=== PATIENT | female | born 1945 | race Hispanic/Latino ===

== ENCOUNTER 2020-02-13 16:17 | Inpatient (IN) | payer SELFPAY ==
[2020-02-13] MEDS ORDERED: ONDANSETRON 4 MG/2 ML VIAL ONE ×2 (18:43→21:27)
[2020-02-13] MEDS ORDERED: NA CHLORIDE 0.9% 1,000 ML ONE (18:43)
[2020-02-13 19:12] LABS: Basophils % 0.2 % (0-1.3); Hematocrit 40.4 % (36.0-45.0); Lymphocytes % 14.5 % (15.3-44.8); MPV 10.3 fL (7.6-11.3); RBC Red Blood Cell Count 4.87 M/uL (3.86-4.86)
[2020-02-13] MEDS ORDERED: Levofloxacin500mg IV 500 MG/100 ML BAG IV ONE (19:16)
[2020-02-13] MEDS ORDERED: ACETAMINOPHEN 325 MG TABLET ONE (19:29)
[2020-02-13 19:39] LABS: Albumin 2.9 g/dL (3.4-5.0); Bilirubin Direct 0.2 mg/dL (0-0.2); Bilirubin Total 0.4 mg/dL (0.2-1.0); Protein, Total 7.5 g/dL (6.4-8.2); Troponin (Emerg Dept Use Only) 0.02 ng/mL (0.0-0.045)
[2020-02-13 20:00] LABS: Magnesium 1.5 mg/dL (1.8-2.4)
--- NOTE | 2020-02-13 20:03 | RAD REPORT ---
EXAM DESCRIPTION: RAD - Chest Single View - 02/13/2020 7:44 pm CLINICAL HISTORY: COUGH COMPARISON: None TECHNIQUE: AP portable chest image was obtained 02/13/2020 7:44 pm . FINDINGS: Hazy opacification is present in the right upper lobe suspicious for early pneumonia. No f ocal abnormality in the left lung field. Small right pleural effusion is also evident. Heart and vasc ulature are normal. No pneumothorax. No acute bony abnormality seen. No acute aortic findings suspect ed. IMPRESSION: Small right pleural effusion is present along with suspicious right upper lobe pneumonia .
--- NOTE | 2020-02-13 20:16 | ER ---
Nurse's Notes [facility] Name: Bee Roque Age: 74 yrs Sex: Female : 1945 Arrival Date: 02/13/2020 Time: 16:19 Bed 25 Private MD: Diagnosis: Nausea;Diarrhea, unspecified;Hypokalemia;Hypomagnesemia;Type 2 diabetes mellitus;Pneumonia due to other specified bacteria-right upper lobe;Pleural effusion in conditions classified elsewhere Presentation: 02/12 16:23 Chief complaint: Daughter in law stated that she has been seeing her PCP for a stomach sv infection. Sent here by the [facility]. They prescribed her meds but has been vomiting and she started to have fever. Reports intermittent abd pain. Coronavirus screen: Proceed with normal triage. Patient denies a cough. Patient denies shortness of breath or difficulty breathing. Patient reports a measured and/or subjective temperature greater than 100.4F. Patient denies travel on a cruise ship or to a country the [facility] currently lists as an affected area. Patient denies contact with known and/or suspected case of COVID-19. Ebola Screen: No symptoms or risks identified at this time. Risk Assessment: Do you want to hurt yourself or someone else? Patient reports no desire to harm self or others. Onset of symptoms was February 13, 2020. 16:23 Method Of Arrival: Wheelchair sv 16:23 Acuity: BC 2 sv 16:31 Initial Sepsis Screen: Does the patient meet any 2 criteria? HR > 90 bpm. No. Patient's sv initial sepsis screen is negative. Does the patient have a suspected source of infection? No. Patient's initial sepsis screen is negative. 17:00 Chief complaint: Daughter in law stated that she got dizzy while she was helping her in sv the bathroom. Reports she is having diarrhea now. Triage Assessment: 16:23 General: Appears in no apparent distress. uncomfortable, Behavior is calm, cooperative, sv appropriate for age. Pain: Complains of pain in abdomen. Neuro: Level of Consciousness is awake, alert, obeys commands, Oriented to person, place, time, situation. Respiratory: Respiratory effort is even, unlabored. GI: Reports vomiting. Historical: - Allergies: 16:28 No Known Allergies; sv - Home Meds: 16:28 famotidine 20 mg Oral tab 1 tab 2 times per day [Active]; glyburide 5 mg Oral tab 1 tab sv 2 times per day [Active]; enalapril maleate 10 mg Oral tab 1 tab once daily [Active]; metoclopramide HCl 10 mg Oral tab three times a day [Active]; - PMHx: 16:28 Diabetes - NIDDM; Hypertension; sv - Immunization history:: Adult Immunizations up to date. - Family history:: not pertinent. - Social history:: Smoking status: unknown. Screenin:00 Abuse screen: Denies threats or abuse. Denies injuries from another. Nutritional bp screening: No deficits noted. Tuberculosis screening: No symptoms or risk factors identified. Fall Risk None identified. Assessment: 16:30 General: SEE TRIAGE NOTE. bp 18:00 Reassessment: PROVIDER ASSIGNED, ORDERS PENDING. bp 19:50 General: Appears uncomfortable, Behavior is appropriate for age. Neuro: Level of ea Consciousness is awake, alert, obeys commands. 19:50 Cardiovascular: Patient's skin is warm and dry. Respiratory: Airway is patent ea Respiratory effort is even, unlabored, Respiratory pattern is regular, symmetrical. GI: Reports diarrhea. GI: Bowel sounds present X 4 quads. Derm: Skin is intact, Skin is pale, Skin temperature is warm. 20:40 Reassessment: Patient and/or family updated on plan of care and expected duration. Pain ea level reassessed. Patient is alert, oriented x 3, equal unlabored respirations, skin warm/dry/pink. 21:00 Reassessment: Patient and/or family updated on plan of care and expected duration. Pain ea level reassessed. Patient is alert, oriented x 3, equal unlabored respirations, skin warm/dry/pink. 22:30 Reassessment: Patient and/or family updated on plan of care and expected duration. Pain ea level reassessed. Pt resting with eyes closed, respirations even and unlabored, chest expansions even and symmetrical. Vital Signs: 16:28 BP 111 / 83; Pulse 109; Resp 16; Temp 99.3(TE); Pulse Ox 98% ; sv 18:00 BP 137 / 73; Pulse 99; Resp 16; Pulse Ox 94% ; bp 19:00 BP 112 / 66; Pulse 92; Resp 18; Pulse Ox 95% ; ea 20:30 BP 117 / 65; Pulse 83; Resp 16; Pulse Ox 96% on R/A; ea 21:30 BP 108 / 50; Pulse 80; Resp 18; Pulse Ox 97% ; ea 02/13 09:03 BP 109 / 41; Pulse 75; Resp 16; Temp 98.6(O); Pulse Ox 96% on R/A; mh5 ED Course: 02/12 16:19 Patient arrived in ED. mr 16:23 Arm band placed on. sv 16:26 Triage completed. sv 17:11 Uche Meza MD is Attending Physician. bri 17:13 Jose Melendez, PRIMITIVO is Primary Nurse. bp 18:00 Patient has correct armband on for positive identification. Bed in low position. Call bp light in reach. Side rails up X2. Adult w/ patient. 18:55 Inserted saline lock: 22 gauge in right forearm, using aseptic technique. Blood bp collected. 19:44 XRAY Chest (1 view) In Process Unspecified. EDMS 20:13 Ned Hernandez is Hospitalizing Provider. bri 20:40 No provider procedures requiring assistance completed. Patient admitted, IV remains in ea place. 02/13 09:07 Pillow given. game technician on. Pulse ox on. NIBP on. mh5 09:07 Placed in gown. mh5 Administered Medications: 02/12 18:55 Drug: NS 0.9% 1000 ml Route: IV; Rate: 1 bolus; Site: right forearm; bp 20:30 Follow up: Response: No adverse reaction; IV Status: Completed infusion; IV Intake: ea 1000ml 19:02 Drug: Zofran (Ondansetron) 4 mg Route: IVP; Site: right forearm; bp 19:50 Follow up: Response: No adverse reaction ea 19:14 Drug: levofloxacin 500 mg Volume: 100 ml; Route: IVPB; Infused Over: 60 mins; Site: ea right forearm; 20:20 Follow up: Response: No adverse reaction; IV Status: Completed infusion ea 19:41 Drug: Tylenol 650 mg Route: PO; ca1 20:20 Follow up: Response: No adverse reaction ea 20:30 Drug: Magnesium Sulfate 1 grams Route: IVPB; Infused Over: 1 hrs; Site: right ea antecubital; 21:49 Follow up: Response: No adverse reaction; IV Status: Completed infusion ea 20:30 Drug: Potassium Chloride 20 mEq Route: IV; Rate: per protocol; Site: right antecubital; ea 23:00 Follow up: Response: No adverse reaction; IV Status: Completed infusion ea 20:30 Drug: NS 0.9% with KCl 20 mEq/L 1000 ml Route: IV; Rate: 100 ml/hr; Site: right ea antecubital; 02/13 00:13 Follow up: IV Status: Infusion continued upon admission ea 02/12 21:28 Drug: morphine 4 mg Route: IVP; Site: right forearm; ea 22:30 Follow up: Response: No adverse reaction; Pain is decreased ea 21:28 Drug: Zofran (Ondansetron) 4 mg Route: IVP; Site: right forearm; ea 22:30 Follow up: Response: No adverse reaction ea Intake: 20:30 IV: 1000ml; Total: 1000ml. ea Outcome: 20:15 Decision to Hospitalize by Provider. bri 20:41 Instructed on the need for admit, Demonstrated understanding of instructions. ea 02/13 00:14 Admitted to ER Hold. Please see [facility] for further documentation. ea Condition: stable 15:48 Patient left the ED. dm5 Signatures: Dispatcher [employer] EDMS Zulma Galvez RN RN dmXochitl Keen RN RN sv Anderson, Corey, MD MD cha Rivera, Kaelyn mr Mccann, Bee Keyanna Guan RN Jose Lynn ea, RN Kathya Gallegos RN RN ca1 Corrections: (The following items were deleted from the chart) 02/12 16:30 16:23 Acuity: BC 3 sv sv 16:31 16:23 Chief complaint: Daughter in law stated that she has been seeing her PCP for a sv stomach infection. Sent here by the [facility]. They prescribed her meds but has been vomiting and she started to have fever. Reports intermittent abd pain. sv
--- NOTE | 2020-02-13 20:17 | EDPHYS ---
Physician Documentation [facility] Name: Bee Roque Age: 74 yrs Sex: Female : 1945 Arrival Date: 02/13/2020 Time: 16:19 Bed 25 Private MD: ED Physician Uche Meza HPI: 02/12 18:23 This 74 yrs old Female presents to ER via Wheelchair with complaints of Fever, bri Vomiting. 18:23 The patient reports fever, that was measured at 100 degrees Fahrenheit. Onset: The bri symptoms/episode began/occurred 4 day(s) ago. Modifying factors: there are no obvious modifying factors. Associated signs and symptoms: Pertinent positives: diarrhea, nausea, vomiting. Severity of symptoms: At their worst the symptoms were moderate in the emergency department the symptoms are unchanged. The patient has not experienced similar symptoms in the past. Historical: - Allergies: 16:28 No Known Allergies; sv - Home Meds: 16:28 famotidine 20 mg Oral tab 1 tab 2 times per day [Active]; glyburide 5 mg Oral tab 1 tab sv 2 times per day [Active]; enalapril maleate 10 mg Oral tab 1 tab once daily [Active]; metoclopramide HCl 10 mg Oral tab three times a day [Active]; - PMHx: 16:28 Diabetes - NIDDM; Hypertension; sv - Immunization history:: Adult Immunizations up to date. - Family history:: not pertinent. - Social history:: Smoking status: unknown. ROS: 18:23 Eyes: Negative for injury, pain, redness, and discharge, ENT: Negative for injury, bri pain, and discharge, Neck: Negative for injury, pain, and swelling, Cardiovascular: Negative for chest pain, palpitations, and edema, Respiratory: Negative for shortness of breath, cough, wheezing, and pleuritic chest pain, Back: Negative for injury and pain, : Negative for injury, bleeding, discharge, and swelling, MS/Extremity: Negative for injury and deformity, Skin: Negative for injury, rash, and discoloration, Neuro: Negative for headache, weakness, numbness, tingling, and seizure, Psych: Negative for depression, anxiety, suicide ideation, homicidal ideation, and hallucinations, Allergy/Immunology: Negative for hives, rash, and allergies, Endocrine: Negative for neck swelling, polydipsia, polyuria, polyphagia, and marked weight changes, Hematologic/Lymphatic: Negative for swollen nodes, abnormal bleeding, and unusual bruising. 18:23 Constitutional: Positive for body aches, chills, fatigue, fever, malaise, poor PO intake. 18:23 Abdomen/GI: Positive for nausea and vomiting, diarrhea. Exam: 18:23 Constitutional: This is a well developed, well nourished patient who is awake, alert, bri and in no acute distress. Head/Face: Normocephalic, atraumatic. Eyes: Pupils equal round and reactive to light, extra-ocular motions intact. Lids and lashes normal. Conjunctiva and sclera are non-icteric and not injected. Cornea within normal limits. Periorbital areas with no swelling, redness, or edema. ENT: Nares patent. No nasal discharge, no septal abnormalities noted. Tympanic membranes are normal and external auditory canals are clear. Oropharynx with no redness, swelling, or masses, exudates, or evidence of obstruction, uvula midline. Mucous membranes moist. Neck: Trachea midline, no thyromegaly or masses palpated, and no cervical lymphadenopathy. Supple, full range of motion without nuchal rigidity, or vertebral point tenderness. No Meningismus. Chest/axilla: Normal chest wall appearance and motion. Nontender with no deformity. No lesions are appreciated. Cardiovascular: Regular rate and rhythm with a normal S1 and S2. No gallops, murmurs, or rubs. Normal PMI, no JVD. No pulse deficits. Respiratory: Lungs have equal breath sounds bilaterally, clear to auscultation and percussion. No rales, rhonchi or wheezes noted. No increased work of breathing, no retractions or nasal flaring. Abdomen/GI: Soft, non-tender, with normal bowel sounds. No distension or tympany. No guarding or rebound. No evidence of tenderness throughout. Back: No spinal tenderness. No costovertebral tenderness. Full range of motion. Female : Normal external genitalia. Skin: Warm, dry with normal turgor. Normal color with no rashes, no lesions, and no evidence of cellulitis. MS/ Extremity: Pulses equal, no cyanosis. Neurovascular intact. Full, normal range of motion. Neuro: Awake and alert, GCS 15, oriented to person, place, time, and situation. Cranial nerves II-XII grossly intact. Motor strength 5/5 in all extremities. Sensory grossly intact. Cerebellar exam normal. Normal gait. Psych: Awake, alert, with orientation to person, place and time. Behavior, mood, and affect are within normal limits. 18:23 Abdomen/GI: Inspection: abdomen appears normal, Bowel sounds: normal, Palpation: abdomen is soft and non-tender, Liver: no appreciated palpable abnormalities, Hernia: not appreciated. 20:17 ECG was reviewed by the Attending Physician. [facility] Vital Signs: 16:28 BP 111 / 83; Pulse 109; Resp 16; Temp 99.3(TE); Pulse Ox 98% ; sv 18:00 BP 137 / 73; Pulse 99; Resp 16; Pulse Ox 94% ; bp 19:00 BP 112 / 66; Pulse 92; Resp 18; Pulse Ox 95% ; ea 20:30 BP 117 / 65; Pulse 83; Resp 16; Pulse Ox 96% on R/A; ea 21:30 BP 108 / 50; Pulse 80; Resp 18; Pulse Ox 97% ; ea 02/13 09:03 BP 109 / 41; Pulse 75; Resp 16; Temp 98.6(O); Pulse Ox 96% on R/A; mh5 MDM: 02/12 17:11 Patient medically screened. [facility] 18:25 Data reviewed: vital signs, nurses notes, lab test result(s), EKG, radiologic studies, [facility] plain films. 20:09 Differential diagnosis: viral Infection, bacterial infection, URI, bronchitis, bri pneumonia UTI. Data interpreted: environmental monitoring technician: rate is 99 beats/min, rhythm is normal sinus rhythm, regular, Pulse oximetry: on room air is 94 %. Test interpretation: by ED physician or midlevel provider: ECG, plain radiologic studies. Counseling: I had a detailed discussion with the patient and/or guardian regarding: the historical points, exam findings, and any diagnostic results supporting the discharge/admit diagnosis, the presence of at least one elevated blood pressure reading (>120/80) during this emergency department visit, lab results, radiology results, the need for further work-up and treatment in the hospital. ED course: nausea , anorexia, diarrhea, weakness..... dehydrated, hypokalemia, hypomagnesemia, pneumonia. admitted to dr hernandez. 02/12 18:22 Order name: Basic Metabolic Panel [facility] 02/12 18:22 Order name: CBC with Diff; Complete Time: 20:07 [facility] 02/12 18:22 Order name: LFT's; Complete Time: 20:07 [facility] 02/12 18:22 Order name: Magnesium; Complete Time: 20:07 [facility] 02/12 18:22 Order name: NT PRO-BNP; Complete Time: 20:07 [facility] 02/12 18:22 Order name: Troponin (emerg Dept Use Only); Complete Time: 20:07 [facility] 02/12 18:22 Order name: Blood Culture Adult (2) [facility] 02/12 18:22 Order name: Stool Culture [facility] 02/12 18:22 Order name: Fecal Leukocyte Stain [facility] 02/12 18:22 Order name: Urine Culture [facility] 02/12 18:22 Order name: COVID-19; Complete Time: 15:44 [facility] 02/12 18:23 Order name: Basic Metabolic Panel; Complete Time: 20:07 EDMA 02/12 21:37 Order name: Urine Dipstick--Ancillary (enter results) [facility] 02/12 21:51 Order name: Urine Dipstick-Ancillary; Complete Time: 15:44 EDMS 02/12 18:22 Order name: XRAY Chest (1 view); Complete Time: 20:07 [facility] 02/13 05:27 Order name: Basic Metabolic Panel; Complete Time: 15:44 EDMS 02/13 05:27 Order name: Phosphorus; Complete Time: 15:44 EDMS 02/13 05:27 Order name: Magnesium; Complete Time: 15:44 EDMS 02/13 05:34 Order name: CBC with Automated Diff; Complete Time: 15:44 EDMS 02/13 08:17 Order name: Glucose, Ancillary Testing; Complete Time: 15:44 EDMS 02/13 12:37 Order name: CORONAVIRUS; Complete Time: 15:44 EDMS 02/13 12:59 Order name: Glucose, Ancillary Testing; Complete Time: 15:44 EDMS 02/12 18:22 Order name: EKG; Complete Time: 18:23 [facility] 02/12 18:22 Order name: Cardiac monitoring; Complete Time: 19:02 [facility] 02/12 18:22 Order name: EKG - Nurse/Tech; Complete Time: 01:04 [facility] 02/12 18:22 Order name: IV Saline Lock; Complete Time: 19:03 [facility] 02/12 18:22 Order name: Labs collected and sent; Complete Time: 19: [facility] 02/12 18:22 Order name: O2 Per Protocol; Complete Time: 18:24 [facility] 02/12 18:22 Order name: O2 Sat Monitoring; Complete Time: 18:24 [facility] 02/12 18:22 Order name: Urine Dipstick-Ancillary (obtain specimen); Complete Time: 01:04 [facility] EC:17 Rate is 88 beats/min. Rhythm is regular. QRS [place] is Normal. [place] interval is normal. QRS bri interval is normal. QT interval is prolonged. No Q waves. T waves are Inverted in leads II, III, aVF, V1, V2, V3, V4, V5, V6. Administered Medications: 18:55 Drug: NS 0.9% 1000 ml Route: IV; Rate: 1 bolus; Site: right forearm; bp 20:30 Follow up: Response: No adverse reaction; IV Status: Completed infusion; IV Intake: ea 1000ml 19:02 Drug: Zofran (Ondansetron) 4 mg Route: IVP; Site: right forearm; bp 19:50 Follow up: Response: No adverse reaction ea 19:14 Drug: levofloxacin 500 mg Volume: 100 ml; Route: IVPB; Infused Over: 60 mins; Site: ea right forearm; 20:20 Follow up: Response: No adverse reaction; IV Status: Completed infusion ea 19:41 Drug: Tylenol 650 mg Route: PO; ca1 20:20 Follow up: Response: No adverse reaction ea 20:30 Drug: Magnesium Sulfate 1 grams Route: IVPB; Infused Over: 1 hrs; Site: right ea antecubital; 21:49 Follow up: Response: No adverse reaction; IV Status: Completed infusion ea 20:30 Drug: Potassium Chloride 20 mEq Route: IV; Rate: per protocol; Site: right antecubital; ea 23:00 Follow up: Response: No adverse reaction; IV Status: Completed infusion ea 20:30 Drug: NS 0.9% with KCl 20 mEq/L 1000 ml Route: IV; Rate: 100 ml/hr; Site: right ea antecubital; 02/13 00:13 Follow up: IV Status: Infusion continued upon admission ea 02/12 21:28 Drug: morphine 4 mg Route: IVP; Site: right forearm; ea 22:30 Follow up: Response: No adverse reaction; Pain is decreased ea 21:28 Drug: Zofran (Ondansetron) 4 mg Route: IVP; Site: right forearm; ea 22:30 Follow up: Response: No adverse reaction ea Disposition: 02/13/20 20:15 Hospitalization ordered by Ned Hernandez for Inpatient Admission. Preliminary diagnosis are Nausea, Diarrhea, unspecified, Hypokalemia, Hypomagnesemia, Type 2 diabetes mellitus, Pneumonia due to other specified bacteria - right upper lobe, Pleural effusion in conditions classified elsewhere. - Bed requested for Telemetry/MedSurg (Inpatient). - Status is Inpatient Admission. dm5 - Condition is Fair. - Problem is new. - Symptoms have improved. Signatures: Dispatcher [employer] EDMS Marcella Ornelas, RN Zulma Liao RN RN dm5 Xochitl Poole RN Uche Schulz MD MD cha Waters, Shelly, SALES ACCOUNT EXECUTIVE-C SALES ACCOUNT EXECUTIVE-Csnw Bobbi Gibson, RN RN tl1 Keyanna Haines RN RN ea Peltier, Brian RN PRIMITIVO bp AcKathya artis RN RN ca1 Corrections: (The following items were deleted from the chart) 21:36 20:15 Hospitalization Ordered by Ned Hernandez for Inpatient Admission. Preliminary tl1 diagnosis is Nausea; Diarrhea, unspecified; Hypokalemia; Hypomagnesemia; Type 2 diabetes mellitus; Pneumonia due to other specified bacteria - right upper lobe; Pleural effusion in conditions classified elsewhere. Bed requested for Telemetry/MedSurg (Inpatient). Status is Inpatient Admission. Condition is Fair. Problem is new. Symptoms have improved. [facility] 02/13 14:19 02/12 21:36 02/13/2020 20:15 Hospitalization Ordered by Ned Hernandez for Inpatient kl Admission. Preliminary diagnosis is Nausea; Diarrhea, unspecified; Hypokalemia; Hypomagnesemia; Type 2 diabetes mellitus; Pneumonia due to other specified bacteria - right upper lobe; Pleural effusion in conditions classified elsewhere. Bed requested for [facility] ER HOLD. Status is Inpatient Admission. Condition is Fair. Problem is new. Symptoms have improved. [facility] 02/13 15:48 14:19 02/13/2020 20:15 Hospitalization Ordered by Ned Hernandez for Inpatient dm5 Admission. Preliminary diagnosis is Nausea; Diarrhea, unspecified; Hypokalemia; Hypomagnesemia; Type 2 diabetes mellitus; Pneumonia due to other specified bacteria - right upper lobe; Pleural effusion in conditions classified elsewhere. Bed requested for Telemetry/MedSurg (Inpatient). Status is Inpatient Admission. Condition is Fair. Problem is new. Symptoms have improved. kl
[2020-02-13] MEDS ORDERED: NS KCL 20MEQ 1,000 ML IV ONE (20:26)
[2020-02-13] MEDS ORDERED: Magnesium Sulfate 2gm IVPB 2 G/50 ML BAG IV ONE (20:27)
[2020-02-13] MEDS ORDERED: KCL 20 MEQ/100 mL IVPB 20 MEQ/100 ML BAG IV ONE (20:27)
--- NOTE | 2020-02-13 21:26 | P.HP ---
Certification for Inpatient Patient admitted to: Observation With expected LOS: <2 Midnights Practitioner: I am a practitioner with admitting privileges, knowledge of patient current condition, hospital course, and medical plan of care. Services: Services provided to patient in accordance with Admission requirements found in Title 42 Section 412.3 of the Code of Federal Regulations Patient History Date of Service: 02/13/20 Reason for admission: Generalize weakness, fever. History of Present Illness: 74-year-old woman with a history of diabetes mellitus and hypertension presented emergency department with a complaint of fever, abdominal pain, nausea and vomiting of about 5 days duration. Patient also started having diarrhea this morning. Daughter reports patient has become progressively weak. She denied any cough or chest pain. Her chest x-ray shows mild early developing right lobe pneumonia. She has some degree of dehydration in her blood work. The patient was vomiting during my examination in the ED and has not tolerated any p.o. She is admitted for further management. - Past Medical/Surgical History -: Diabetes mellitus -: Hypertension - Family History Family History: Reviewed- Non-Contributory - Social History Smoking Status: Never smoker Alcohol use: No CD- Drugs: No Place of Residence: Home Review of Systems Other: Except as documented, all other systems reviewed and negative. Physical Examination - Physical Exam General: Alert, Mild distress HEENT: Normocephalic, PERRLA, Mucous membr. moist/pink, Sclerae nonicteric Neck: Supple Respiratory: Clear to auscultation bilaterally, Normal air movement Cardiovascular: No edema, Normal S1 S2, Other (Tachycardia) Capillary refill: <2 Seconds Gastrointestinal: Normal bowel sounds, Non-distended, No rebound, No guarding, Tenderness (Diffuse) Musculoskeletal: No swelling, No erythema Integumentary: No rashes Neurological: Normal speech, Normal strength at 5/5 x4 extr, Cranial nerves 3-12 intact - Studies Laboratory Data (last 24 hrs) 02/13/20 18:55: WBC 7.1, Hgb 13.9, Hct 40.4, Plt Count 194 02/13/20 18:55: Sodium 131 L, Potassium 3.0 L, BUN 23 H, Creatinine 1.49 H, Glucose 277 H, Magnesium 1.5 L, Total Bilirubin 0.4, AST 53 H, ALT 41, Alkaline Phosphatase 66 Microbiology Data (last 24 hrs): 07/06/20 18:30 Nasopharnyx Coronavirus COVID-19 PCR - Final Assessment and Plan - Problems (Diagnosis) (1) Acute viral disease Current Visit: Yes Status: Acute (2) Pneumonia Current Visit: Yes Status: Acute (3) Acute gastroenteritis Current Visit: Yes Status: Acute (4) Diabetes mellitus Current Visit: Yes Status: Acute - Plan Place under observation. Supportive measures with IV hydration, IV antiemetics. Check stool studies. Start IV Rocephin and Zithromax. Screen for COVID 19 is pending. Insulin sliding scale for glucose management. Hold antihypertensives and monitor blood pressure. Follow UA. - Advance Directives Does patient have a Living Will: No Does patient have a Durable POA for Healthcare: No
[2020-02-13] MEDS ORDERED: MORPHINE 4 MG/ML SYR ONE (21:27)
[2020-02-13 21:51] LABS: Urine Blood 2+ (NEG); Urine Glucose NEGATIVE (NEG); Urine Protein 2+ (NEG); Urine Specific Gravity 1.015 (1.005-1.030)
[2020-02-13] MEDS: NA CHLORIDE 0.9% 1,000 ML IV SCH (22:28)
[2020-02-13] MEDS ORDERED: MAGNESIUM SULFATE 1 gm IVPB 1 GM/100 ML BAG IV ONE (22:28)
[2020-02-13] MEDS: ONDANSETRON 4 MG/2 ML VIAL IV PRN (22:46)
[2020-02-13] MEDS: AZITHROMYCIN IV 500 MG in NA CHLORIDE 0.9% 250 ML IVPB SCH (23:00)
[2020-02-14] MEDS ORDERED: PROMETHAZINE INJ 25 MG/ML AMP ONE (00:10)
[2020-02-14 00:40] VITALS: BMI 25.7
[2020-02-14 05:10] LABS: Absolute Lymphocytes (CBC) 1.9 K/uL (0.7-4.9); Basophils % 0.5 % (0-1.3); Hematocrit 36.5 % (36.0-45.0); Lymphocytes % 36.5 % (15.3-44.8); MPV 9.8 fL (7.6-11.3); RBC Red Blood Cell Count 4.47 M/uL (3.86-4.86)
[2020-02-14 05:22] LABS: Magnesium 1.8 mg/dL (1.8-2.4); Phosphorus 3.4 mg/dL (2.5-4.9); Potassium 4.1 mmol/L (3.5-5.1)
[2020-02-14] MEDS ORDERED: MAGNESIUM SULFATE 1 gm IVPB 1 GM/100 ML BAG IV ONE ×2 (05:51→06:34)
[2020-02-14] MEDS: CEFTRIAXONE/SWI 1gm 1 GM/10 ML SYR IV SCH (07:00)
[2020-02-14] MEDS ORDERED: NA CHLORIDE 0.9% 0 ML ONE (07:02)
[2020-02-14] MEDS ORDERED: CEFTRIAXONE/SWI 1gm 1 GM/10 ML SYR ONE ×2 (07:10→08:24)
[2020-02-14] MEDS: INSULIN -REGULAR HUMAN 50 UNIT/0.5 ML ML SQ SCH ×4 (07:30→21:00)
--- NOTE | 2020-02-14 07:37 | P.PN ---
Subjective Date of Service: 02/14/20 Chief Complaint: Generalize weakness, fever. Patient states she feels much better today. She stated her abdominal pain is much better. She vomited multiple times last night but no vomiting this morning. She is complaining of headache. No fever recorded this morning. She needed minimal assistance with transfer. Physical Examination - Vital Signs Temperature: 98.5 F Blood Pressure: 111/58 Pulse: 71 Respirations: 15 Pulse Ox (%): 96 - Physical Exam General: Alert, In no apparent distress, Oriented x3 HEENT: Mucous membr. moist/pink, Sclerae nonicteric Neck: Supple Respiratory: Clear to auscultation bilaterally, Normal air movement Cardiovascular: No edema, Regular rate/rhythm, Normal S1 S2 Gastrointestinal: Normal bowel sounds, Soft and benign, Non-distended, No tenderness Musculoskeletal: No swelling, No erythema Integumentary: No rashes Neurological: Normal speech, Normal strength at 5/5 x4 extr - Studies Laboratory Data (last 24 hrs) 02/13/20 18:55: WBC 7.1, Hgb 13.9, Hct 40.4, Plt Count 194 02/13/20 18:55: Sodium 131 L, Potassium 3.0 L, BUN 23 H, Creatinine 1.49 H, Glucose 277 H, Magnesium 1.5 L, Total Bilirubin 0.4, AST 53 H, ALT 41, Alkaline Phosphatase 66 Microbiology Data (last 24 hrs): 02/13/20 18:30 Nasopharnyx Coronavirus COVID-19 PCR - Final Assessment And Plan - Current Problems (Diagnosis) (1) Acute viral disease Current Visit: Yes Status: Acute (2) Pneumonia Current Visit: Yes Status: Acute (3) Acute gastroenteritis Current Visit: Yes Status: Acute (4) Diabetes mellitus Current Visit: Yes Status: Acute - Plan Continue supportive measures and IV antibiotics. Follow screen for COVID. UA shows no significant evidence of UTI. Follow blood culture and stool studies.
[2020-02-14] MEDS ORDERED: NA CHLORIDE 0.9% 1,000 ML ONE (08:24)
[2020-02-14] MEDS ORDERED: ENOXAPARIN 40 MG/0.4 ML SQ ONE (08:24)
[2020-02-14] MEDS ORDERED: INSULIN -REGULAR HUMAN 50 UNIT/0.5 ML ML ONE ×2 (08:26→13:02)
[2020-02-14] MEDS: NA CHLORIDE 0.9% 1,000 ML IV SCH ×3 (08:28→21:50)
[2020-02-14] MEDS: ENOXAPARIN 40 MG/0.4 ML SQ SCH (08:31)
[2020-02-14] MEDS ORDERED: ACETAMINOPHEN 500 MG TAB ONE (10:42)
[2020-02-14] MEDS: ACETAMINOPHEN 500 MG TAB PO PRN ×3 (10:46→21:52)
--- NOTE | 2020-02-14 10:55 | EKG ---
Test Date: 2020-02-13 Test Time: 20:09:03 Metallurgical Lab Technician: DELMA MEASUREMENT RESULTS: Intervals: Rate: 88 WI: 128 QRSD: 78 QT: 458 QTc: 554 [place]: P: 2 WI: 128 QRS: 2 T: -35 INTERPRETIVE STATEMENTS: Normal sinus rhythm Nonspecific T wave abnormality Prolonged QT Abnormal ECG No previous ECG available for comparison Electronically Signed On 02-14-20 10:53:55 CDT by Js Lee
[2020-02-14] MEDS: ONDANSETRON 4 MG/2 ML VIAL IV PRN (17:29)
[2020-02-14 18:11] LABS: Urine Appearance CLEAR; Urine Bilirubin NEGATIVE (NEG); Urine Blood NEGATIVE (NEG); Urine Color YELLOW; Urine Glucose TRACE (NEG); Urine Protein TRACE (NEG); Urine Urobilinogen 0.2 mg/dL (0.2-1.0); Urine pH 5.5 (5.0-7.0)
[2020-02-14 18:18] LABS: Urine Microscopic Reflex ORDER UMIC
[2020-02-14 18:36] LABS: Urine Bacteria <20 /HPF (<20); Urine Culture Reflex Order NOT NEEDED; Urine RBC <5 /HPF (NONE SEEN)
[2020-02-14 20:59] VITALS: O2SAT 92
[2020-02-14] MEDS: PROMETHAZINE INJ 25 MG/ML AMP IV PRN ×2 (21:50)
[2020-02-14] MEDS: AZITHROMYCIN IV 500 MG in NA CHLORIDE 0.9% 250 ML IVPB SCH (23:00)
[2020-02-15] MEDS: ACETAMINOPHEN 500 MG TAB PO PRN (06:15)
[2020-02-15] MEDS: CEFTRIAXONE/SWI 1gm 1 GM/10 ML SYR IV SCH (06:18)
[2020-02-15] MEDS: INSULIN -REGULAR HUMAN 50 UNIT/0.5 ML ML SQ SCH (07:30)
[2020-02-15 08:24] LABS: Magnesium 1.2 mg/dL (1.8-2.4); Phosphorus 2.7 mg/dL (2.5-4.9)
[2020-02-15 08:33] LABS: Potassium 2.7 mmol/L (3.5-5.1)
[2020-02-15] MEDS: ENOXAPARIN 40 MG/0.4 ML SQ SCH (08:34)
[2020-02-15] MEDS ORDERED: PNEUMOCOCCAL VACCINE 0.5 ML IMVAC ONE (09:00)
[2020-02-15] MEDS ORDERED: Magnesium Sulfate 2gm IVPB 2 G/50 ML BAG IV ONE (09:00)
[2020-02-15] MEDS ORDERED: KCL 20 MEQ/100 mL IVPB 20 MEQ/100 ML BAG IV SCH (09:02)
[2020-02-15 09:08] VITALS: BP 95/59; TEMP 100.4
--- NOTE | 2020-02-15 10:48 | P.DS ---
Admission Date: 02/14/20 Discharge Date: 02/15/20 Disposition: ROUTINE DISCHARGE Discharge Condition: FAIR Reason for Admission: Generalize weakness, fever. - Problems (1) Acute viral disease Status: Acute (2) Pneumonia Status: Acute (3) Acute gastroenteritis Status: Acute (4) Diabetes mellitus Status: Acute Brief History of Present Illness: 74-year-old woman with a history of diabetes mellitus and hypertension presented emergency department with a complaint of fever, abdominal pain, nausea and vomiting of about 5 days duration. Patient also started having diarrhea this morning. Daughter reports patient has become progressively weak. She denied any cough or chest pain. Her chest x-ray shows mild early developing right lobe pneumonia. She has some degree of dehydration in her blood work. The patient was vomiting during my examination in the ED and has not tolerated any p.o. She was admitted for further management. Hospital Course: Patient was admitted to the medical floor and treated with supportive measures including IV fluids. She was also treated with IV antibiotics. She tested positive for COVID 19. Her symptoms improved with treatment. She had abdominal pain which got resolved. Diarrhea also resolved. Her oral intake improved. She continued to have intermittent fever but has not been requiring oxygen. Electrolyte abnormalities including hypokalemia were treated with potassium supplementation. Patient is deemed clinically stable. Patient signed out against medical advice. She was informed to return to the ED for signs of worsening clinical condition including shortness of breath and generalized weakness. Vital Signs/Physical Exam: Temp Pulse Resp BP Pulse Ox 100.4 F 87 18 95/59 L 96 02/15/20 08:00 02/15/20 08:00 02/15/20 08:00 02/15/20 08:00 02/15/20 08:00 General: Alert, In no apparent distress, Oriented x3 HEENT: Mucous membr. moist/pink, Sclerae nonicteric Neck: Supple Respiratory: Clear to auscultation bilaterally, Normal air movement Cardiovascular: No edema, Regular rate/rhythm, Normal S1 S2 Gastrointestinal: Normal bowel sounds, Soft and benign, Non-distended, No tenderness Musculoskeletal: No swelling, No erythema Integumentary: No rashes Neurological: Normal speech, Normal strength at 5/5 x4 extr Laboratory Data at Discharge: WBC 5.2 K/uL (4.3-10.9) D 02/14/20 04:55 Hgb 12.8 g/dL (12.0-15.0) 02/14/20 04:55 Hct 36.5 % (36.0-45.0) 02/14/20 04:55 Plt Count 184 K/uL (152-406) 02/14/20 04:55 Sodium 135 mmol/L (136-145) L 02/15/20 07:35 Potassium 2.7 mmol/L (3.5-5.1) L* 02/15/20 07:35 BUN 11 mg/dL (7-18) 02/15/20 07:35 Creatinine 0.89 mg/dL (0.55-1.3) 02/15/20 07:35 Glucose 112 mg/dL (74-106) H 02/15/20 07:35 Phosphorus 2.7 mg/dL (2.5-4.9) 02/15/20 07:35 Magnesium 1.2 mg/dL (1.8-2.4) L* D 02/15/20 07:35 Total Bilirubin 0.4 mg/dL (0.2-1.0) 02/13/20 18:55 AST 53 U/L (15-37) H 02/13/20 18:55 ALT 41 U/L (12-78) 02/13/20 18:55 Alkaline Phosphatase 66 U/L (45-117) 02/13/20 18:55 Home Medications: Famotidine [Pepcid*] 20 mg PO BID 02/14/20 Metoclopramide HCl [Reglan] 10 mg PO DAILY 02/14/20 Potassium Chloride 20 meq PO DAILY #2 tab.er.prt 02/15/20 New Medications: Potassium Chloride 20 meq PO DAILY #2 tab.er.prt Diet: ADA Activity: Ad rob Time spent managing pt's care (in minutes): 36
== END 2020-02-15 11:15 | disposition home or self-care (01) | DRG 177 ==
LOC: ER 16:17 → ERHOLD 21:30 → OBSVTOIN 02-14 08:10 → 4TH 02-14 15:24
PROVIDERS: ADMIT Internal Medicine; ATTEND Internal Medicine
DX: U07.1 COVID-19 (principal); J12.89 Other viral pneumonia; E11.9 Type 2 diabetes mellitus without complications; I10 Essential (primary) hypertension; E86.0 Dehydration; R00.0 Tachycardia, unspecified; K52.9 Noninfective gastroenteritis and colitis, unspecified; Z79.899 Other long term (current) drug therapy
CPT/HCPCS: 36415; 71045; 80048; 80076; 81003; 81015; 82947; 83735; 83880; 84100; 84484; 85025; 87040; 87086; 87088; 93005; 94760; 96361; 96365; 96366; 96367; 96368; 96375; 99285; G0378; J0456; J0696; J1650; J2405; J2550; J3475; J3480; J7030; J7050; U0002